=== PATIENT | female | born 1995 | race Caucasian/White ===

== ENCOUNTER → 2016-12-10 | Outpatient (CLI) | payer OTHER ==
[~2016-12-10] MED LIST: CETI10CA PO
--- NOTE | 2016-12-10 15:03 | Diagnostic Imaging Report ---
EXAMINATION: First trimester OB ultrasound. INDICATION: Threatened . FINDINGS: There is a single intrauterine seen with an embryo measuring at 5 weeks and 6 days of gestation. This would correlate with an ESTEFANY of 08/06/2017. No cardiac activity is noted. A yolk sac is seen. There is no significant subchorionic hemorrhage or significant abnormality in the shape of the sac. IMPRESSION: There is an embryo noted measuring at 5 weeks and 6 days of gestation. No cardiac activity is seen at this point which is atypical. This is not considered definitive for demise, however, at this stage and correlation with serial beta-hCG and followup ultrasound would be recommended. The findings were discussed with Dr. Horner by Dr. aDvis at the time of dictation. Dictated by: Dictated on workstation # [id number]
== END ==
LOC: RAD 14:15
PROVIDERS: ATTEND Obstetrics & Gynecology
DX: O20.0 Threatened abortion (principal); Z3A.01 Less than 8 weeks gestation of pregnancy
CPT/HCPCS: 76801; 76817

== ENCOUNTER 2016-12-11 07:52 | Emergency (ER) | payer OTHER ==
[~2016-12-11] VITALS: Ht 157.5 cm; Wt 59.0 kg
[2016-12-11] MEDS ORDERED: CETI10CA PO (08:20)
[2016-12-11 08:36] LABS: KETONES,URINE 3+ (NEGATIVE); LEUKOCYTE ESTERASE ,URINE 2+ (NEGATIVE); NITRITE,URINE NEGATIVE (NEGATIVE); PH,URINE 5 (5-9); PROTEIN,URINE 2+ (NEGATIVE); UROBILINOGEN,URINE 1 MG/DL (NORMAL)
[2016-12-11 08:54] LABS: BILIRUBIN,URINE 1+ (NEGATIVE)
--- NOTE | 2016-12-11 09:27 | ED GU-Female ---
General Chief Complaint: -Female Stated Complaint: VAG BLEEDING/CRAMPING 6 WKS PREG Nursing Triage Note: PT AMBULATED INTO ROOM 09 WITHOUT DIFFICULTY. PT STATES SHE IS APPX 6WEEKS GESTATION. SPOTTING STARTING ON THURSDAY WITH ABD PAIN YESTERDAY AND BRIGHT RED BLEEDING WITH CLOTS LAST NIGHT. SAW HER DR YESTERDAY AND HAD A ULTRASOUND DONE WHICH PLACED HER AT 5WEEKS ET 6 DAYS. Nursing Sepsis Screen: No Definite Risk Source: patient Exam Limitations: no limitations History of Present Illness Time seen by provider: 09:21 Initial Comments The patient is a 21-year-old college student who presents with cramping and vaginal bleeding. She saw Dr. Horner yesterday and had a sonogram. She thought herself to be about 10 weeks . The sonogram suggested only the 5+ weeks. She has had bleeding since Thursday and it is increasing at this point. Cramping is sharp and new. This is her first . Timing/Duration: this morning Severity/Quality: moderate Location: suprapubic Allergies and Home Medications Allergies Coded Allergies: No Known Drug Allergies (Unverified , 12/11/16) Home Medications Cetirizine HCl 10 Mg Capsule, 10 MG PO DAILY, (Reported) Constitutional: see HPI EENTM: no symptoms reported Respiratory: no symptoms reported Cardiovascular: no symptoms reported Gastrointestinal: no symptoms reported Musculoskeletal: see HPI Skin: no symptoms reported Past Kcgfola-Hehbku-Mpogjy Hx Patient Social History Alcohol Use: Occasionally Uses Recreational Drug Use: Yes (POT) Smoking Status: Current Someday Smoker Recent Foreign Travel: No Contact w/Someone Who Travel: No Recent Infectious Disease Expo: No Recent Hopitalizations: No Surgeries HX Surgeries: Yes (NOSE) Respiratory Hx Respiratory Disorders: Yes (CHILDHOOD ASTHMA) Cardiovascular Hx Cardiac Disorders: No Neurological Hx Neurological Disorders: No Reproductive System : Yes Hx Reproductive Disorders: No Genitourinary Hx Genitourinary Disorders: No Gastrointestinal Hx Gastrointestinal Disorders: No Musculoskeletal Hx Musculoskeletal Disorders: No Endocrine Hx Endocrine Disorders: No HEENT HX ENT Disorders: No Cancer Hx Cancer: No Psychosocial Hx Psychiatric Problems: No Physical Exam Vital Signs Vital Sign - Last 12Hours 12/11/16 08:05 Temp 98.8 Pulse 90 Resp 16 B/P (MAP) 120/86 Pulse Ox 99 Capillary Refill : Less Than 3 Seconds General Appearance: other (tearful) HEENT: normal ENT inspection Cardiovascular: normal peripheral pulses, regular rate, rhythm, no edema, no gallop, no JVD, no murmur Respiratory: chest non-tender, lungs clear, normal breath sounds, no respiratory distress, no accessory muscle use, respiratory distress Gastrointestinal: normal bowel sounds, non tender, soft, no organomegaly, no pulsatile mass, abnormal bowel sounds Progress/Results/Core Measures Results/Orders Lab Results Laboratory Tests Test 12/11/16 08:20 12/11/16 08:25 Range/Units Urine Color OTHER H Urine Clarity VERY CLOUDY H Urine pH 5 5-9 Urine Specific Prospect 1.025 H 1.016-1.022 Urine Protein 2+ H NEGATIVE Urine Glucose (UA) NEGATIVE NEGATIVE Urine Ketones 3+ H NEGATIVE Urine Nitrite NEGATIVE NEGATIVE Urine Bilirubin 1+ H NEGATIVE Urine Urobilinogen 1 NORMAL MG/DL Urine Leukocyte Esterase 2+ H NEGATIVE Urine RBC (Auto) 5+ H NEGATIVE Urine RBC TNTC H /HPF Urine WBC 2-5 /HPF Urine Squamous Epithelial Cells 2-5 /HPF Urine Crystals NONE /LPF Urine Bacteria TRACE /HPF Urine Casts NONE /LPF Urine Mucus NEGATIVE /LPF Urine Culture Indicated YES Human Chorionic Gonadotropin, Quant 5924 H <5 MIU/ML My Orders Orders - MORIS LANDIN MD Hcg,Quantitative (12/11/16 08:06) Ua Culture If Indicated (12/11/16 08:06) Urine Culture (12/11/16 08:20) Vital Signs/I&O Vital Sign - Last 12Hours 12/11/16 08:05 Temp 98.8 Pulse 90 Resp 16 B/P (MAP) 120/86 Pulse Ox 99 Blood Pressure Mean: 97 Departure Communication Progress Notes HCG was consistent with a at 4-5 weeks. The graphic and the explanation of its meaning were given to the patient. It is considered almost certain that she is miscarrying Impression Impression: Primary Impression: Miscarriage, threatened, early Disposition: 01 HOME, SELF-CARE Condition: Stable/Unchanged Departure-Patient Inst. Decision time for Depature: 09:25 Referrals: NO,LOCAL PHYSICIAN (PCP) Primary Care Physician Add. Discharge Instructions: All discharge instructions reviewed with patient and/or family. Voiced understanding. Rest. Approach this as a heavy menses In terms of pain relief and discomfort Keep your scheduled appointment for next Thursday MORIS LANDIN MD Dec 11, 2016 09:27
[2016-12-11] MEDS ORDERED: IBUPROFEN 600 MG (MOTRIN) TAB PO ONE (09:30)
[2016-12-11] MEDS ORDERED: IBUPROFEN TABLET 200 MG TAB PO ONE (09:30)
[2016-12-11 09:37] VITALS: BP 121/88
== END 2016-12-11 09:37 | disposition home or self-care (01) ==
LOC: EDUNIT# 07:52 → ER 07:54
DX: O20.0 Threatened abortion (principal); O99.331 Smoking (tobacco) complicating pregnancy, first trimester; F17.210 Nicotine dependence, cigarettes, uncomplicated; Z3A.01 Less than 8 weeks gestation of pregnancy
CPT/HCPCS: 36415; 81000; 84702; 87088; 99283

== ENCOUNTER → 2018-01-29 | Outpatient (CLI) | payer OTHER ==
--- NOTE | 2018-01-29 18:42 | Diagnostic Imaging Report ---
PROCEDURE: US OB SINGLE FETUS <14 WKS. TECHNIQUE: Multiple real-time grayscale images were obtained over the gravid uterus in various projections. INDICATION: dates. FINDINGS: There is a single live intrauterine gestation. Ozone-rump length measures approximately 0.92 cm which corresponds to an estimated gestational age of 7 weeks 0 days. cardiac activity is detected with a heart rate of 135 beats per minute. The right ovary measures 2.6 cm x 1.6 cm x 1.7 cm and the left ovary measures 2.8 cm x 1.9 cm x 2.7 cm. There is a 1.2 cm cyst in the left ovary possibly corpus luteum. There is no free fluid. IMPRESSION: Single live intrauterine gestation with estimated gestational age of 7 weeks 0 days based on today's ultrasound. No acute abnormality is seen. There is a 1.2 cm probable corpus luteum cyst in the left ovary. Dictated by: Dictated on workstation # [id number]
== END ==
LOC: RAD 14:49
PROVIDERS: ATTEND Family Medicine
DX: O34.81 Maternal care for other abnormalities of pelvic organs, first trimester (principal); N83.12 Corpus luteum cyst of left ovary; Z3A.01 Less than 8 weeks gestation of pregnancy
CPT/HCPCS: 76801